=== PATIENT | female | born 1965 | race Caucasian/White ===

== ENCOUNTER → 2018-02-11 07:12 | Outpatient (CLI) | payer BC, SELFPAY | PROVIDERS: Family Provider Family Medicine; PCP Family Medicine; Visit Provider Obstetrics & Gynecology Gynecology | DX: Z12.31 Encounter for screening mammogram for malignant neoplasm of breast (principal) | CPT/HCPCS: 77063; 77067 ==

== ENCOUNTER → 2018-07-12 07:43 | Outpatient (CLI) | payer BC, SELFPAY ==
[2018-06-02 15:13] VITALS: BMI 35.5
[2018-07-12 10:28] LABS: Color, Urine Yellow (Yellow); Glucose, Dipstick Normal (Normal); Ketone-Dipstick Negative (Negative); Leukocyte Esterase-Dipstick 25 /ul (Negative); Nitrite-Dipstick Negative (Negative); Occult Blood-Urine 10 /ul (Negative); Protein-Dipstick Negative (Negative); Urine Bilirubin Dipstick Negative (Negative); Urine Clarity Clear (Clear); Urine Urobilinogen Normal (Normal)
[2018-07-12 10:31] LABS: Absolute Lymphocyte Count 1.97 X10^3/ul (0.83-4.51); Absolute Neutrophil Count 3.2 X10^3/uL (2.0-7.7); Basophil# 0.01 X10^3/uL; Basophil% 0.2 % (0-1); Eosinophil# 0.06 X10^3/uL; Eosinophils% 1.1 % (0-5); Hematocrit 40.9 % (37-47); Hemoglobin 12.8 g/dl (12.0-15.0); Lymphocyte # 1.97 X10^3/ul (4.0); Lymphocyte % 35.1 % (19-41); Mean Corp Hgb Conc 31.3 g/gl (32-36); Mean Corpuscular Hgb 29.2 pg (27.0-32.0); Mean Corpuscular Volume 93.4 fL (81-99); Mean Platelet Vol. 9.7 fl (6.2-12.0); Monocyte# 0.33 X10^3/uL; Monocyte% 5.9 % (0-10); Neutrophil # 3.24 X10^3/uL (2.7-7.7); Neutrophil % 57.5 % (47-70); Platelet Count 313 K/mm3 (150-450); RBC Distribution Width CV 13.4 % (11.6-14.6); RBC Distribution Width SD 45.5 fl (35.1-43.9); Red Blood Count 4.38 M/mm3 (4.2-5.4); White Blood Count 5.6 K/mm3 (4.4-11.0)
[2018-07-12 10:32] LABS: POSITIVE COUNT NO; POSITIVE DIFFERENTIAL NO; POSITIVE MORPHOLOGY NO
[2018-07-12 10:57] LABS: ALB/GLOB Ratio 0.8 RATIO (0.9-2.4); AST(SGOT) 21 U/L (15-37); Alanine Aminotransfer ALT/SGPT 33 U/L (13-56); Albumin, Serum 3.3 g/dL (3.2-5.0); Alkaline Phosphatase 88 U/L (45-117); Anion Gap 7 (5-15); BUN 11 mg/dL (7-18); BUN/Creat Ratio 13.6 RATIO (10-20); Calcium,Total 8.2 mg/dL (8.5-10.1); Chloride 103 mmol/L (98-107); Cholesterol 180 mg/dL (200); Creatinine, Serum 0.81 mg/dL (0.55-1.02); EST Glomerular Filtration Rate 79 mL/min (>60); Est Glom Filt Rate - Afr Amer 95 mL/min (>60); Globulin 4.3 g/dL (2.2-4.2); Glucose 78 mg/dL (74-106); High Density Lipoprotein 42 mg/dL; Potassium 3.7 mmol/L (3.5-5.1); Protein, Total 7.6 g/dL (6.4-8.2); Sodium Level 138 mmol/L (136-145); Thyroid Stim Hormone (TSH) 1.94 uIU/mL (0.358-3.74); Triglycerides 130 mg/dL; Very Low Density Lipoprotein 26 mg/dL (5-40)
--- OUTSIDE RECORDS SUMMARY | 2018-09-13 07:58 | XMS RPT_ITS ---
:1965 Author Organization OHIP Care Team Providers Name Role Phone Pacheoc Beckwith Attending Unavailable Lilliana Mullen Attending Unavailable Lilliana Mullen Referring Unavailable Pacheco Beckwith Primary Care Unavailable Chandrakant Murphy Attending Unavailable Pacheco Beckwith Referring Unavailable Pacheco Beckwith Attending Unavailable Pacheco Beckwith Referring Unavailable Pacheco Beckwith Primary Care Unavailable PROBLEMS PROBLEMS DATE TYPE CONDITION / CODE ATTENDING STATUS SOURCE 06/02/2018 Unknown J32.9 - Chronic Chandrakant Murphy Active [place] sinusitis, Community unspecified / Hospital J32.9(ICD-10) Repository 06/02/2018 Unknown J47.9 - Chandrakant Murphy Active [facility] Bronchiectasis, Community uncomplicated / Hospital J47.9(ICD-10) Repository 06/02/2018 Unknown J45.909 - Chandrakant Murphy Active [facility] Unspecified asthma, Community uncomplicated / Hospital J45.909(ICD-10) Repository 08/02/2017 Admitting Unknown / Pacheco Beckwith Active [facility] Medical diagnosis UNK(Unknown) G [facility] Repository PROCEDURES PROCEDURES No Procedure Records FoundRESULTS RESULTS URINALYSIS, ROUTINE Collected: 07/12/2018 Status: F Source: [place] (DIPSTICK) 7:46 AM [facility] REPOSITORY Order Comment: How was Urine Obtained? CLEAN CATCH TYPE CODE TESTS RESULT OUT OF RANGE REFERENCE UNITS LAB L400.3000 Yellow COLOR Normal Yellow LAB L400.3050 Clear Normal CLARITY Clear LAB L400.3200 Normal mg/dl Normal GLUCOSE, UR Normal LAB L400.3300 Negative mg/dL Normal BILIRUBIN URINE Negative LAB L400.3400 Negative mg/dl Normal KETONE UR Negative LAB L400.3465 1.002-1.030 Normal SP.GR. DIPSTX 1.010 LAB L400.3550 5.0 - 8.0 pH UR Normal 8.0 LAB L400.3600 Negative mg/dl PROT Normal DIPSTX Negative LAB L400.3700 Normal mg/dl Normal UROBILI Normal LAB L400.3750 Negative Normal NITRITE UR Negative LAB L400.3780 Negative /ul High 10 OCCULT BLOOD-UR LAB L400.3800 Negative /ul High LEUK 25 ESTERASE Performed By: #### L400.2010 #### [facility] [address] [place], [place], [id number] CBC W/DIFF, AUTOMATED Collected: 07/12/2018 Status: F Source: [place] 7:46 AM [facility] REPOSITORY TYPE CODE TESTS RESULT OUT OF RANGE REFERENCE UNITS LAB L100.1000 4.4-11.0 K/mm3 Normal WBC 5.6 LAB L100.1200 4.2-5.4 M/mm3 Normal RBC 4.38 LAB L100.1300 12.0-15.0 g/dl Normal HGB 12.8 LAB L100.1400 37-47 % Normal HCT 40.9 LAB L100.1500 81-99 fL Normal MCV 93.4 LAB L100.1600 27.0-32.0 pg Normal MCH 29.2 LAB L100.1700 32-36 g/gl Low MCHC 31.3 LAB L100.1810 11.6-14.6 % Normal RDW CV 13.4 LAB L100.1820 35.1-43.9 fl High RDW SD 45.5 LAB L100.1900 150-450 K/mm3 Normal PLT 313 LAB L100.2000 6.2-12.0 fl Normal MPV 9.7 LAB L100.2100 47-70 % Normal NEUT% 57.5 LAB L100.2200 19-41 % Normal LY% 35.1 LAB L100.2300 0-10 % Normal MONO% 5.9 LAB L100.2400 0-5 % Normal EO% 1.1 LAB L100.2500 0-1 % Normal BASO% 0.2 LAB L100.2550 0.0-0.9 % Normal IM GRAN % 0.200 Result Comment: IG% - Immature Granulocytes (promyelocytes, myelocytes and metamyelocytes) > 1% indicates that a LEFT SHIFT is Present. LAB L100.2620 2.0-7.7 X10 3/uL Normal Absolute Neut 3.2 LAB L100.2720 0.83-4.51 X10 3/ul Normal Absolute Lymph 1.97 Performed By: #### L100.0100 #### [facility] [address] [place], [place] [address]osman. [place], [place], [address] COMPREHENSIVE METABOLIC Collected: 07/12/2018 Status: F Source: [place] 7:46 AM [facility] REPOSITORY TYPE CODE TESTS RESULT OUT OF RANGE REFERENCE UNITS LAB L501.0100 74-106 mg/dL Normal GLU 78 Result Comment: Please note revised GLUCOSE reference range effective 2017. LAB L501.1000 7-18 mg/dL Normal BUN 11 LAB L501.1100 0.55-1.02 mg/dL Normal CREAT,SERUM 0.81 Result Comment: The validity of the calculated GFR AND GFRAA in patients over 70 years has not been determined. Clinical correlation is essential. LAB L501.1110 >60 mL/min Normal EST GFR 79 Result Comment: Non- GFR Calc LAB L501.1115 >60 mL/min Normal EST GFR - AA 95 Result Comment: GFR Calc LAB L501.1300 10-20 RATIO Normal BUN/CRE 13.6 LAB L501.1500 6.4-8.2 g/dL T Normal PROT 7.6 LAB L501.1800 3.2-5.0 g/dL Normal ALB 3.3 LAB L501.1950 2.2-4.2 g/dL High GLOB 4.3 LAB L501.2000 0.9-2.4 RATIO Low A/G 0.8 LAB L501.2200 8.5-10.1 mg/dL Low CA 8.2 LAB L501.4100 15-37 U/L Normal AST 21 LAB L501.4305 45-117 U/L Normal ALK P 88 LAB L501.4405 13-56 U/L Normal ALT 33 LAB L501.4600 0.20-1.00 mg/dL T Normal BILI 0.40 LAB L501.5300 136-145 mmol/L NA Normal 138 LAB L501.5600 3.5-5.1 mmol/L K Normal 3.7 LAB L501.5900 98-107 mmol/L CL Normal 103 LAB L501.6100 21.0-32.0 mmol/L Normal CO2 28.0 LAB L501.6200 5-15 Normal GAP 7 Performed By: #### L500.4050, L500.4100, L501.9520 #### [facility] [address] [facility] [place], [place], [address] LIPID PROFILE Collected: 07/12/2018 Status: F Source: [place] 7:46 AM [facility] REPOSITORY TYPE CODE TESTS RESULT OUT OF RANGE REFERENCE UNITS LAB L501.4900 200 mg/dL Normal CHOL 180 Result Comment: <200 mg/dL Desirable 200-240 mg/dL Borderline >240 mg/dL High Risk LAB L501.5000 mg/dL Normal TRIG 130 Result Comment: The drugs N-Acetylcysteine and Metamizole may falsely depress this assay. Serum Triglycerides Reference Interval Normal <150 mg/dL Borderline high 150 - 199 mg/dL High 200 - 499 mg/dL Very High > or = 500 mg/dL LAB L501.6400 mg/dL Normal HDL 42 Result Comment: The drugs N-Acetylcysteine and Metamizole may falsely depress this assay. Reference Range HDL <40 mg/dL Low HDL Cholesterol HDL >or= 60 mg/dL High HDL Cholesterol LAB L501.6500 0-130 mg/dL Normal LDL 112 LAB L501.6600 5-40 mg/dL Normal VLDL 26 Performed By: #### L500.4050, L500.4100, L501.9520 #### [facility] [address] [place], [address] THYROID STIM HORMONE Collected: 07/12/2018 Status: F Source: [place] (TSH) 7:46 AM [facility] REPOSITORY TYPE CODE TESTS RESULT OUT OF RANGE REFERENCE UNITS LAB L501.9520 0.358-3.74 uIU/mL Normal TSH 1.94 Performed By: #### L500.4050, L500.4100, L501.9520 #### [facility] [address] [place], [address] URGENT CARE VISIT Observed: 06/02/2018 Status: F Source: [place] REPORT 3:22 PM [facility] REPOSITORY [facility] [address] [place] [address] [address] [place] [address] OFFICE VISIT Date of Service: 06/02/18 MR#: [id number] Acct: [id number] Name: RENEE MICHELLE Rep #: [id number] : 1965 Provider: Chandrakant JARVIS Age/Sex: 53/F Location: [facility] Status: Signed Intake Vital Signs06/02/18 Height 5 ft 4 in 06/02/18 Weight: 207 lb 06/02/18 Body Mass Index (BMI) 35.5 06/02/18 Blood Pressure 124/80 H Intake Visit Reasons: CHEST CONGESTION AND COUGH Chief Complaint: Sinus pressure, postnasal drip, wheezing Pantograph Operator Required: No Allergies No Known Allergies Allergy (Unverified 06/02/18 15:18) Medications amoxicillin 500 mg capsule 1,000 mg PO BID 14 Days #56 cap 06/02/18 [Rx Confirmed 06/02/18] escitalopram 20 mg tablet 20 mg PO DAILY 06/02/18 [History Confirmed 06/02/18] levothyroxine 112 mcg capsule 112 mcg PO DAILY 06/02/18 [History Confirmed 06/02/18] methylprednisolone 4 mg tablets in a dose pack See Rx Instructions PO PER PKG DIR #21 tab 06/02/18 [Rx Confirmed 06/02/18] PFSH Medical History Asthma (Acute) Knee pain (Acute) Lung disease (Acute) Thyroid disease (Acute) diarrhea lasting more than one week (Acute) HPI HPI Chief Complaint: Sinus pressure, postnasal drip, wheezing Details: RENEE MICHELLE, is a 53 F who presents to the office today for initial evaluation approximately 3-4-week history of progressively worsening sinus pressure, purulent postnasal drip, chills. Patient decided to seek medical attention today as she has noticed over the last 24-48 hours developing a mild wheeze. She notes having a past medical history of bronchiectasis and asthma for which she uses albuterol nebulizers on an as-needed basis. She notes no complaints of chest pain/shortness of breath/fatigue, malaise scant nonproductive moist cough has recently developed over the last couple of days as well. She has taken no vcib-ztt-vmuqrpq products to assist with her symptoms. She notes no other associated symptoms and no other alleviating or aggravating factors. ROS Const Constitutional: No other (ROS negative x10 other than as noted above) Exam Const General: cooperative (Though warm to touch), healthy appearing, no acute distress, uncomfortable Nutritional Appearance: obese Orientation: alert, awake, oriented x3 HENMT Head: normal to inspection Ears: hearing grossly normal bilaterally, external ears normal, TM's normal bilaterally, EAC's normal Nose: external nose normal, nares normal, septum normal, no nasal discharge Face and sinus: normal facial exam, face symmetric, sinus tenderness ethmoid and frontal Mouth: oral mucosae normal, lip normal, tongue normal Teeth and gingiva: dentition normal, gingiva normal Throat: uvula midline, tonsils normal, posterior oropharynx normal, postnasal drainage (Moderate amount purulent visualized posterior pharynx) Eyes General: appearance normal, both eyes and all related structures Neck Neck: normal visual inspection, full ROM, no meningeal signs, supple, lymphadenopathy (Bilateral anterior cervical node swelling and tender to palpation) Neck mass: No Thyroid: thyroid normal Chest Chest palpation AND inspection: normal inspection of the chest Resp Effort AND Inspection: normal respiratory effort, able to speak in complete sentences, symmetric chest movement, cough Quality of cough: wet (Nonproductive) Auscultation: Bilateral: Clear to Auscultation (Except trace inspiratory/expiratory wheezes in bases partially clearing with cough) Cardio Palpation: normal PMI Rate: regular rate Rhythm: regular rhythm Heart Sounds: S1 normal, S2 normal, no gallops, no murmurs, no rubs Pulses: radial pulses present GI Inspection: normal to inspection Palpation: soft, no hepatosplenomegaly Skin General: no rashes or lesions noted Neuro General: alert, awake, oriented x3, gait normal Cognition: normal cognition Speech: speech normal Gait: normal gait Motor: muscle tone normal throughout Sensory Exam: no sensory deficits noted Psych Appearance: grossly normal Mental Status: mental status grossly normal Mood: congruent mood Affect: normal affect Speech and Movement: speech and movement normal Attitude: cooperative Thought Process: normal Thought Content: normal Judgment: judgment good Assessment AND Plan Problems 1. Sinusitis J32.9 2. Bronchiectasis J47.9 3. Asthma J45.909 Plan Amoxicillin and methylprednisolone as prescribed today. Continue albuterol as previous as needed. Avoid tobacco smoke exposure. Follow-up with PCP in 3-5 days should symptoms not improved, sooner should symptoms worsen or any other concerns develop. Patient states acknowledging understanding all the above. This note was generated with [employer] software. It may contain incorrect words, spelling, and punctuation that were not noted in checking the note before signing. Medications New: Coding Level of Care Code Off vis,new,level 3 Diagnoses Sinusitis J32.9 Bronchiectasis J47.9 Asthma J45.909 06/02/18 1522 <Electronically signed by Chandrakant JARVIS> Date Chandrakant JARVIS Cosigner Signature: Date (if applicable) CC: SCREENING MAMM (CAD), Observed: 02/11/2018 Status: F Source: [place] 7:16 AM [facility] REPOSITORY [facility] Imaging Services [address] [place], [place] [address] [address] SCREENING MAMM (CAD), BILAT MR#: [id number] Acct: [id number] Name: RENEE MICHELLE Rep #: [id number] : 1965 F 52 From: Golden Godfrey MD PCP: Pacheco Beckwith MD Status: REG CLI Study: SCREENING MAMM (CAD), BILAT Date of Exam: 02/11/18 Exam# [id number] Ordering Dr: Lilliana Mullen MD MAMMOGRAPHY - BILATERAL SCREENING REASON FOR EXAM: Female, 52 years old. Routine annual screening examination. PERTINENT HISTORY: Non-contributory. Left medial sebaceous cyst. TECHNIQUE: Digital bilateral breast diamante (3D mammographic acquisition) in the CC and MLO projections. 2-D mediolateral oblique (MLO) and craniocaudad (CC) views of both breasts were obtained. CAD: Full Field Digital Mammography with Computer Added Detection was performed. COMPARISON: Comparison is made with prior study dated May 20, 2010. FINDINGS: Breast Composition: There are scattered areas of fibroglandular density. There are no dominant masses or suspicious calcifications. There is a 1.2 cm x 1.4 cm well-defined superficial nodule in the deep inferior medial portion of the left breast incomplete with a history of sebaceous cyst. No other significant abnormalities are identified. There has been no significant change since the prior study. BI/SCREENING MAMM (CAD), BILAT IMPRESSION: Stable bilateral screening mammogram. Yearly follow-up mammogram recommended. (A) ASSESSMENT CATEGORY: BIRADS Category 2: Benign. A letter regarding these results will be sent to the patient by the facility within 30 days. Approximately 10% of breast cancers are not detected by mammography. A normal mammogram should not delay biopsy of a clinically suspicious abnormality. [id number] Electronically Signed: Golden Godfrey MD at 8:51 EDT Tel [phone], Service support , CC: Lilliana Mullen MD; Pacheco Beckwith MD Diesel Engine Fitter: Signed STL OCC BLD SCR Collected: 08/02/2017 Status: F Source: [facility] 12:25 PM [facility] REPOSITORY TYPE CODE TESTS RESULT OUT OF RANGE REFERENCE UNITS LAB L680.51040 NEGATIVE Normal STL POSITIVE OCC BLD SCR Performed By: #### L680.47264 #### [facility] [address] [place] [address] CDIF PCR Collected: 08/02/2017 Status: C Source: [facility] 12:25 PM [facility] REPOSITORY TYPE CODE TESTS RESULT OUT OF REFERENCE UNITS RANGE LAB L770.61977 NEGATIVE High CDIF PCR POSITIVE Result Comment: FURTHER TESTING FOR C.DIFFICILE IS NOT NECESSARY UNTIL THE COURSE OF TREATMENT HAS BEEN COMPLETED. PLEASE CANCEL ANY OTHER PENDING ORDERS FOR C.DIFFICILE TOXIN. RESULTS CALLED TO ALONDRA GALAVIZ AT 1203 08/03/17 BY DEION HASTINGS Performed By: #### L770.60639, L780.97947 #### [facility] [address] [place] [address] STOOL PANEL GI Collected: 08/02/2017 Status: F Source: [facility] 12:25 PM [facility] TYPE CODE TESTS RESULT OUT OF REFERENCE UNITS RANGE LAB L780.1000 NOTDETECTED 0 CAMPY Normal NOT DETECTED LAB L780.1100 NOTDETECTED 0 NOROVIRUS PCR Normal NOT DETECTED LAB L780.1200 NOTDETECTED 0 ROTAVIRUS A PCR Normal NOT DETECTED LAB L780.1300 NOTDETECTED 0 SAPOVIRUS PCR Normal NOT DETECTED LAB L780.3000 NOTDETECTED 0 PLESIOMONAS PCR Normal NOT DETECTED LAB L780.4000 NOTDETECTED 0 SALMONELLA PCR Normal NOT DETECTED LAB L780.5000 NOTDETECTED 0 VIBRIO PCR Normal NOT DETECTED LAB L780.6000 NOTDETECTED 0 V CHOLERAE PCR Normal NOT DETECTED LAB L780.7000 NOTDETECTED 0 YERSINIA PCR Normal NOT DETECTED LAB L780.8000 NOTDETECTED 0 EAEC E COLI PCR Normal NOT DETECTED LAB L780.9000 NOTDETECTED 0 EPEC E COLI PCR Normal NOT DETECTED LAB L780.9100 NOTDETECTED 0 ETEC E.COLI PCR Normal NOT DETECTED LAB L780.9200 NOTDETECTED 0 SHIGATOXIN ECOL Normal NOT DETECTED LAB L780.9230 NOTDETECTED 0 E.COLI O157 PCR Normal NOT DETECTED LAB L780.9300 NOTDETECTED 0 SHIGELLA/EIEC Normal NOT DETECTED LAB L780.9400 NOTDETECTED 0 CRYPTOSPORIDIUM Normal NOT DETECTED LAB L780.9500 NOTDETECTED 0 CYCLOSPORA PCR Normal NOT DETECTED LAB L780.9600 NOTDETECTED 0 E.HISTOLYTICA Normal NOT DETECTED LAB L780.9700 NOTDETECTED 0 GIARDIA KELLOGG PCR Normal NOT DETECTED LAB L780.9800 NOTDETECTED 0 ADENOVIRUS PCR Normal NOT DETECTED LAB L780.9900 NOTDETECTED 0 ASTROVIRUS PCR Normal NOT DETECTED Result Comment: Virus, bacteria, and parasite nucleic acid may persist in vivo independently of organism viability. Additionally, some organisms may be carried asymptomatically. Detection of organism targets does not imply that the corresponding organisms are infections or are the causative agents for clinical symptoms. Performed By: #### L770.99120, L780.15329 #### [facility] [address] [place] [address]# [phone] ALLERGIES ALLERGIES DATE TYPE / CODE NAME / CODE REACTION SEVERITY SOURCE 06/02/2018 Drug No Known Unknown [facility] Allergy/4160 Allergies/F00 [facility] [address](SNOMED [id number](RXNOR Repository CT) M) ENCOUNTERS ENCOUNTERS ADMIT/DISCHARGE ACCOUNT ADMITTING ENCOUNTER LOCATION SOURCE NUMBER CLASS 07/12/2018 [id number] Ambulatory [facility] ing:MTLAB Repository 06/02/2018/ [id number] Ambulatory BMSBuilding:B [place] 8 2 [facility] Repository 02/11/2018 [id number] Ambulatory [place] [facility] ing:OPBI Repository 08/02/2017 [id number] Ambulatory [address] g:KARINA Repository PAYERS PAYERS ENCOUNTER GUARANTOR PAYER SUBSCRIBER SOURCE 07/12/2018 [place] [id number] S Insurance:ANTHEMPolic MULLETDOB: [facility] SensorTran y Number: [id number], [id number] Repository [place] [address]Rsg: Date:0882-80-25MN [address]JPTLFHKALLY FORBES () [address]PR: 07/12/2018 Secondary NOT GIVENUNK [place] Insurance:SELF PAY [facility] Hospital Number: Effective Repository Date:2018-07-12 06/02/2018 [place] Primary [place] [facility] [id number] S Insurance:ANTHEMPolic MULLETDOB: Community [place] [place] y Number: [id number], [id number] Repository [place] [address]Qmi: Date:7263-12-25WG [address]TOAZPVTALLY FOR[address]ES () [address]CH: 06/02/2018 Secondary NOT GIVENUNK [place] Insurance:SELF PAY [facility] Hospital Number: Effective Repository Date:2018-06-02 02/11/2018 [place] Primary [place] [facility] [id number] S Insurance:ANTHEMPolic MulletDOB: Community [place] y Number: [id number] Hospital, [id number] Repository [place] [address]Kce: Date:4285-04-53YI [address]YVOZEFLALLY FOR[address] () [address]QL: 02/11/2018 Secondary NOT GIVENUNK [place] Insurance:SELF PAY [facility] Hospital Number: Effective Repository Date:2018-01-26 08/02/2017 RENEE Covarrubias Primary [place] [facility] [id number] S Insurance:ANTHEM MULLETUNK [facility] Number: Repository [facility], [id number] [place] [address]Ckn: Date:5338-90-23YB [address]QKBUCDOALLY FORBES () [address]YE:
== END ==
PROVIDERS: Family Provider Family Medicine; PCP Family Medicine; Referring Provider Family Medicine; Visit Provider Family Medicine
DX: Z00.00 Encounter for general adult medical examination without abnormal findings (principal); E03.9 Hypothyroidism, unspecified
CPT/HCPCS: 36415; 80053; 80061; 81002; 84443; 85025

== ENCOUNTER → 2018-11-05 09:27 | Outpatient (CLI) | payer BC, SELFPAY ==
[2018-11-04 17:18] VITALS: BMI 35.5
== END ==
PROVIDERS: Family Provider Family Medicine; PCP Family Medicine; Visit Provider Physician Assistant Surgical
DX: J02.9 Acute pharyngitis, unspecified (principal)
CPT/HCPCS: 87081

== ENCOUNTER 2018-12-09 16:42 | Emergency (ER) | payer BC, SELFPAY ==
[2018-11-04 17:18] VITALS: BMI 35.5
[2018-12-09 16:43] VITALS: BP 89/53; PULSE 80; RESP 18; TEMP 36.6; O2SAT 93; BMI 36.3
--- NOTE | 2018-12-09 17:49 | ED.DCSUM_ITS ---
- ER Visit Summary Date of Service: 12/09/18 Chief Complaint: Right arm injury History of Present Illness: The patient is a 53 F presents for injury to the right arm. Patient fell off the second step of a step stool while trying to paint the top of the door. She landed on her right elbow. She has had loss of function due to severe pain. She denies hitting her head or injuring her neck or back. Denies any other injuries. She has not taken anything for the pain. No blood thinners. History of hypothyroidism. Physical Examination: Vital signs: afebrile, hemodynamically stable, no hypoxia on room air General: well nourished, well developed, in no distress Skin: warm, dry, no rash, no pallor HEENT: normocephalic and atraumatic; PERRL, EOMI, moist mucous membranes Cardiovascular: regular rate and rhythm Respiratory: No increased work of breathing MSK: Patient holding the right upper extremity with shoulder adducted and elbow flexed against the torso. No deformity or tenderness at the shoulder joint. Swelling and pain along the humerus and into the elbow. No deformity noted to the elbow. No tenderness or deformities to the forearm. Patient has distal sensation and motor function intact. Radial pulse 2+. Neuro: Awake and alert, oriented ?4. No facial droop, sensation and motor function intact and symmetric Test Results: Medications Given Discontinued Medications Hydrocodone Bitart/Acetaminophen ([place] 5mg-325mg) 1 tablet PO X1 ONE Stop: 12/09/18 21:20 Last Admin: 12/09/18 22:29 Dose: 1 tablet Documented by: ROMY Morphine Sulfate () 10 mg SC X1 ONE Stop: 12/09/18 17:50 Last Admin: 12/09/18 18:15 Dose: 10 mg Documented by: MAURY Morphine Sulfate () 10 mg SC X1 ONE Stop: 12/09/18 19:44 Last Admin: 12/09/18 20:11 Dose: 10 mg Documented by: ROMY Clinical Impression(s) from Imaging Studies Elbow X-Ray 12/09/18 18:24 IMPRESSION: Acute displaced fracture of the distal third of the humeral shaft Electronically Signed: Oscar Lofton MD at 18:52 EDT , Service support , Humerus X-Ray 12/09/18 18:24 IMPRESSION: Acute displaced fracture of the distal third of the humeral shaft Electronically Signed: Oscar Lofton MD at 18:54 EDT , Service support , Humerus X-Ray 12/09/18 21:34 IMPRESSION: Comminuted fracture of the distal humeral shaft/metaphysis. There is mild medial angulation deformity at the fracture site, improved from the prereduction images. Electronically Signed: Lio Villagomez MD at 22:04 EDT , Service support , Emergency Department Course and Treatment: Patient presents with isolated trauma to the right upper extremity. She has no other injuries on evaluation. She was given subcutaneous morphine for her pain. X-ray showed a distal humerus shaft fracture that is spiral and angulated. Patient did have positive wrist extension, sensation intact to all distal dermatomes, and a 2+ radial pulse. She was discussed with Dr. Rodriguez, and was placed in a coaptation splint. Patient was then placed in a sling. After the splint placement, patient continued to have positive wrist extension, sensation intact and radial pulse 2+. A post reduction x-ray showed mild improvement in the alignment of the humerus. Patient was given prescription for pain medication and splint care instructions. She will follow-up with next week for reevaluation and further treatment. Treatment Plan: [] Disposition: [] Impression: Right distal humerus fracture status post splinting This note was generated with [employer] dictation software. It may contain incorrect words, spelling, and punctuation that were not noted in review of the chart prior to signing ED Disposition - Plan for ED Patient: Disposition: Home or Assisted Living Instructions: FRACTURE, Upper Extremity Prescriptions: Hydrocodone Bitart/Apap 5-325 [[place] 5MG-325MG] 1 tab PO Q6H PRN PRN 5 Days #20 tab PRN Reason: Pain Prescription Printed Ondansetron [Zofran Odt] 4 mg PO Q8H PRN PRN #10 tab PRN Reason: Nausea Prescription Printed Referrals: Pacheco Beckwith MD [Primary Care Provider] - Estela Rodriguez DO [STAFF PHYSICIAN] - 3-5 Days Additional Instructions: You may use lpfy-lwh-exqqmkd pain medication for mild to moderate pain. Use the [place] for moderate to severe pain. Apply ice to the arm 3-4 times a day for 15 to 20 minutes each time. Wear the sling for support of the arm. Do not get the splint wet. Follow-up with Dr. Rodriguez next week. Call her office first thing Wednesday to set up a follow-up appointment. If at any time you develop severe uncontrolled pain feel like there are any problems with the splint, develop numbness, color change or temperature change in the hand or have any concerns at all, return immediately to the emergency department for another evaluation.
[2018-12-09] MEDS: morphine 10 MG/ML Syringe SC ×2 (18:15→20:11)
--- NOTE | 2018-12-09 18:24 | RAD_ITS ---
STUDY: X-RAY - RIGHT ELBOW REASON FOR EXAM: Female, 53 years old. Trauma TECHNIQUE: 2 view(s) of the elbow. COMPARISON: None. FINDINGS: Normal visualized, radius and ulna. Normal radiocapitellar and ulnotrochlear articulations. Comminuted spiral fracture of the distal humeral shaft with separation and medial volar angulation of fracture fragments Diffuse soft tissue swelling noted RAD/Elbow 2 Views IMPRESSION: Acute displaced fracture of the distal third of the humeral shaft Electronically Signed: Oscar Lofton MD at 18:52 EDT , Service support ,
--- NOTE | 2018-12-09 18:24 | RAD_ITS ---
STUDY: X-RAY - RIGHT HUMERUS REASON FOR EXAM: Female, 53 years old. Trauma TECHNIQUE: 2 view(s) of the humerus. COMPARISON: None. FINDINGS: Acute comminuted spiral fracture of the distal third of the humeral shaft with overlapping and mild medial angulation of fracture fragments. Diffuse soft tissue swelling is noted RAD/Humerus min 2 Views IMPRESSION: Acute displaced fracture of the distal third of the humeral shaft Electronically Signed: Oscar Lofton MD at 18:54 EDT , Service support ,
--- NOTE | 2018-12-09 21:34 | RAD_ITS ---
STUDY: X-RAY - RIGHT HUMERUS REASON FOR EXAM: Female, 53 years old. Post reduction TECHNIQUE: 2 view(s) of the humerus. COMPARISON: Previous study of earlier this date 6:18 PM FINDINGS: There is a comminuted fracture of the distal humeral shaft/metaphysis. There is mild medial angulation deformity at the fracture site, improved slightly from the previous study. Soft tissue swelling is noted. RAD/Humerus min 2 Views IMPRESSION: Comminuted fracture of the distal humeral shaft/metaphysis. There is mild medial angulation deformity at the fracture site, improved from the prereduction images. Electronically Signed: Lio Villagomez MD at 22:04 EDT , Service support ,
[2018-12-09] MEDS: HYDROcodone Bitartrate/Apap 5/325 Tablet PO (22:29)
[2018-12-09 22:59] VITALS: BP 116/66; PULSE 89; RESP 16
== END 2018-12-09 23:14 | disposition home or self-care (01) ==
PROVIDERS: Emergency Provider Emergency Medicine; Family Provider Family Medicine; PCP Family Medicine
DX: S42.341A Displaced spiral fracture of shaft of humerus, right arm, initial encounter for closed fracture (principal); W10.9XXA Fall (on) (from) unspecified stairs and steps, initial encounter; Y93.89 Activity, other specified; Y92.9 Unspecified place or not applicable; Y99.9 Unspecified external cause status; E03.9 Hypothyroidism, unspecified; Z79.899 Other long term (current) drug therapy
CPT/HCPCS: 29105; 73060; 73070; 96372; 99282

== ENCOUNTER → 2019-01-09 09:07 | Outpatient (CLI) | payer BC, SELFPAY ==
[2019-01-09 09:45] LABS: Absolute Lymphocyte Count 2.75 X10^3/uL (0.83-4.51); Absolute Neutrophil Count 3.8 X10^3/uL (2.0-7.7); Basophil# 0.03 X10^3/uL; Basophil% 0.4 % (0-1); Color, Urine Yellow (Yellow); Eosinophil# 0.12 X10^3/uL; Eosinophils% 1.7 % (0-5); Glucose, Dipstick Normal (Normal); Hematocrit 40.2 % (37-47); Hemoglobin 13.2 g/dL (12.0-15.0); Ketone-Dipstick Negative (Negative); Leukocyte Esterase-Dipstick 25 /ul (Negative); Lymphocyte # 2.75 X10^3/ul (4.0); Lymphocyte % 38.3 % (19-41); Mean Corp Hgb Conc 32.8 g/dL (32-36); Mean Corpuscular Volume 91.4 fL (81-99); Mean Platelet Vol. 9.5 fl (6.2-12.0); Monocyte# 0.46 X10^3/uL; Monocyte% 6.4 % (0-10); NRBC Flagged by Analyzer 0 % (0-5); Neutrophil # 3.81 X10^3/uL (2.7-7.7); Neutrophil % 53.1 % (47-70); Nitrite-Dipstick Negative (Negative); Occult Blood-Urine 10 /ul (Negative); Platelet Count 312 K/mm3 (150-450); Protein-Dipstick Negative (Negative); RBC Distribution Width CV 12.6 % (11.6-14.6); RBC Distribution Width SD 41.4 fl (35.1-43.9); Specific Gravity, Urine 1.005 (1.002-1.030); Urine Bilirubin Dipstick Negative (Negative); Urine Clarity Sl. Cloudy (Clear); Urine Urobilinogen Normal (Normal); White Blood Count 7.2 K/mm3 (4.4-11.0)
[2019-01-09 10:19] LABS: ALB/GLOB Ratio 0.8 RATIO (0.9-2.4); AST(SGOT) 20 U/L (15-37); Alanine Aminotransfer ALT/SGPT 27 U/L (13-56); Albumin, Serum 3.5 g/dL (3.2-5.0); Alkaline Phosphatase 97 U/L (45-117); Anion Gap 8 (5-15); BUN 14 mg/dL (7-18); BUN/Creat Ratio 15.5 RATIO (10-20); Calcium,Total 9.1 mg/dL (8.5-10.1); Chloride 103 mmol/L (98-107); Cholesterol 200 mg/dL (200); EST Glomerular Filtration Rate 70 mL/min (>60); Est Glom Filt Rate - Afr Amer 84 mL/min (>60); Globulin 4.6 g/dL (2.2-4.2); Glucose 87 mg/dL (74-106); High Density Lipoprotein 50 mg/dL; Protein, Total 8.1 g/dL (6.4-8.2); Sodium Level 141 mmol/L (136-145); Thyroid Stim Hormone (TSH) 2.36 uIU/mL (0.358-3.74); Triglycerides 113 mg/dL; Very Low Density Lipoprotein 23 mg/dL (5-40)
== END ==
PROVIDERS: Family Provider Family Medicine; PCP Family Medicine; Referring Provider Family Medicine; Visit Provider Family Medicine
DX: Z00.00 Encounter for general adult medical examination without abnormal findings (principal); E03.9 Hypothyroidism, unspecified; J47.9 Bronchiectasis, uncomplicated
CPT/HCPCS: 36415; 80053; 80061; 81002; 84443; 85025

== ENCOUNTER → 2019-03-23 14:11 | Outpatient (CLI) | payer BC, SELFPAY | PROVIDERS: Family Provider Family Medicine; PCP Family Medicine; Referring Provider Orthopaedic Surgery; Visit Provider Orthopaedic Surgery | DX: S42.391D Other fracture of shaft of right humerus, subsequent encounter for fracture with routine healing (principal); X58.XXXA Exposure to other specified factors, initial encounter; Y93.9 Activity, unspecified; Y92.9 Unspecified place or not applicable; Y99.9 Unspecified external cause status | CPT/HCPCS: 36415; 82306 ==

== ENCOUNTER → 2019-08-29 13:41 | Outpatient (CLI) | payer BC, SELFPAY ==
[2019-08-29 13:26] VITALS: BMI 36.3
--- NOTE | 2019-08-29 13:41 | RAD_ITS ---
STUDY: X-RAY CHEST REASON FOR EXAM: Female, 54 years old. COUGH TECHNIQUE: PA and lateral views of the chest. COMPARISON: Comparison is made with prior study dated August 14, 2016. FINDINGS: Persistent infiltrate in the lingular segment of the left upper lobe and left lower lobe. Follow-up is recommended. There is no demonstrated pleural abnormality. Normal size heart. Normal mediastinum and nina. Normal visualized pulmonary arteries. Normal visualized aortic arch and descending thoracic aorta. There are diffuse degenerative changes of the visualized thoracic spine. Normal visualized ribs, clavicles, and shoulders. Small hiatal hernia. RAD/Chest PA and Lateral IMPRESSION: Persistent left lower lobe infiltrate. Electronically Signed: Golden Godfrey, at 14:03 EDT , Service support ,
== END ==
PROVIDERS: PCP Family Medicine; Referring Provider Physician Assistant Surgical; Visit Provider Physician Assistant Surgical
DX: J47.9 Bronchiectasis, uncomplicated (principal)
CPT/HCPCS: 71046

== ENCOUNTER → 2020-01-10 15:45 | Outpatient (CLI) | payer BC, SELFPAY ==
[2019-08-29 13:26] VITALS: BMI 36.3
--- NOTE | 2020-01-10 16:04 | RAD_ITS ---
STUDY: X-RAY CHEST REASON FOR EXAM: Female, 54 years old. Pre-op TECHNIQUE: Frontal and lateral views of the chest. COMPARISON: 08/29/2019. FINDINGS: Normal lung volumes. Stable mild streaky density in both lung bases most consistent with scarring worse on the left. No definite acute infiltrates. No effusions. Normal size heart. Normal mediastinum and nina. Normal visualized pulmonary arteries. Normal visualized aortic arch and descending thoracic aorta. Normal visualized thoracic spine. Normal visualized ribs, clavicles, and shoulders. There is no demonstrated abnormality of the visualized soft tissue structures of the upper abdomen. RAD/Chest PA and Lateral IMPRESSION: Stable mild streaky density in both lung bases most consistent with scarring worse on the left. No definite acute infiltrates. Electronically Signed: Daniel Pleitez MD at 20:35 EDT , Service support ,
--- NOTE | 2020-01-10 16:05 | EKG12_ITS ---
Test Reason : PREOP Blood Pressure : / mmHG Vent. Rate : 054 BPM Atrial Rate : 054 BPM P-R Int : 140 ms QRS Dur : 084 ms QT Int : 392 ms P-R-T Axes : 027 018 014 degrees QTc Int : 371 ms Sinus bradycardia Nonspecific T wave abnormality Abnormal ECG Confirmed by TEJAL EVERETT ([id number]), editor news KAYE RAMOS ([id number]) on 01/15/2020 12:01:39 PM Referred By: Chandrakant Washburn Confirmed By:TEJAL EVERETT
[2020-01-10 16:55] LABS: Absolute Lymphocyte Count 2.72 X10^3/uL (0.83-4.51); Absolute Neutrophil Count 4.6 X10^3/uL (2.0-7.7); Basophil# 0.05 X10^3/uL; Basophil% 0.6 % (0-1); Eosinophil# 0.16 X10^3/uL; Hematocrit 38.7 % (37-47); Hemoglobin 12.5 g/dL (12.0-15.0); Lymphocyte # 2.72 X10^3/ul (4.0); Lymphocyte % 34.1 % (19-41); Mean Corp Hgb Conc 32.3 g/dL (32-36); Mean Corpuscular Hgb 29.8 pg (27.0-32.0); Mean Corpuscular Volume 92.4 fL (81-99); Mean Platelet Vol. 9.5 fl (6.2-12.0); Monocyte# 0.45 X10^3/uL; Monocyte% 5.6 % (0-10); NRBC Flagged by Analyzer 0 % (0-5); Neutrophil # 4.57 X10^3/uL (2.7-7.7); Neutrophil % 57.4 % (47-70); Platelet Count 314 K/mm3 (150-450); RBC Distribution Width CV 12.9 % (11.6-14.6); Red Blood Count 4.19 M/mm3 (4.2-5.4)
[2020-01-10 17:16] LABS: Anion Gap 2 (5-15); BUN 15 mg/dL (7-18); Calcium,Total 9.2 mg/dL (8.5-10.1); Chloride 106 mmol/L (98-107); Creatinine, Serum 0.79 mg/dL (0.55-1.02); EST Glomerular Filtration Rate 81 mL/min (>60); Est Glom Filt Rate - Afr Amer 98 mL/min (>60); Glucose 103 mg/dL (74-106); Potassium 4.6 mmol/L (3.5-5.1); Sodium Level 139 mmol/L (136-145)
== END ==
PROVIDERS: PCP Family Medicine; Referring Provider Specialist; Visit Provider Specialist
DX: Z01.818 Encounter for other preprocedural examination (principal); Z01.810 Encounter for preprocedural cardiovascular examination; Z01.811 Encounter for preprocedural respiratory examination
CPT/HCPCS: 36415; 71046; 80048; 85025; 93005

== ENCOUNTER → 2020-01-18 07:32 | Outpatient (CLI) | payer BC, SELFPAY ==
[2019-08-29 13:26] VITALS: BMI 36.3
[2020-01-18 07:43] LABS: Mucous, Urine 0 SEEN /hpf (<or=2+)
[2020-01-18 10:19] LABS: Absolute Lymphocyte Count 1.99 X10^3/uL (0.83-4.51); Absolute Neutrophil Count 2.8 X10^3/uL (2.0-7.7); Basophil# 0.04 X10^3/uL; Basophil% 0.8 % (0-1); Eosinophil# 0.12 X10^3/uL; Eosinophils% 2.3 % (0-5); Glucose, Dipstick Normal (Normal); Hematocrit 39.2 % (37-47); Hemoglobin 12.8 g/dL (12.0-15.0); Ketone-Dipstick Negative (Negative); Leukocyte Esterase-Dipstick 500 /ul (Negative); Lymphocyte # 1.99 X10^3/ul (4.0); Lymphocyte % 37.3 % (19-41); Mean Corp Hgb Conc 32.7 g/dL (32-36); Mean Corpuscular Hgb 29.6 pg (27.0-32.0); Mean Corpuscular Volume 90.5 fL (81-99); Mean Platelet Vol. 9.5 fl (6.2-12.0); Monocyte# 0.35 X10^3/uL; Monocyte% 6.6 % (0-10); NRBC Flagged by Analyzer 0 % (0-5); Neutrophil # 2.82 X10^3/uL (2.7-7.7); Neutrophil % 52.8 % (47-70); Nitrite-Dipstick Negative (Negative); Occult Blood-Urine 50 /ul (Negative); Platelet Count 341 K/mm3 (150-450); Protein-Dipstick Negative (Negative); RBC Distribution Width CV 12.7 % (11.6-14.6); RBC Distribution Width SD 41.8 fl (35.1-43.9); Red Blood Count 4.33 M/mm3 (4.2-5.4); Urine Bilirubin Dipstick Negative (Negative); Urine Urobilinogen Normal (Normal); Urine pH 6.5 (5.0 - 8.0); White Blood Count 5.3 K/mm3 (4.4-11.0)
[2020-01-18 10:28] LABS: Color, Urine Yellow (Yellow); Urine Clarity Clear (Clear)
[2020-01-18 10:29] LABS: Squamous Epithelial Cells - UA 25-50 SEEN /hpf (5-10)
[2020-01-18 10:30] LABS: Renal Epithelial Cells 0-5 SEEN /hpf (0-5)
[2020-01-18 10:32] LABS: Red Blood Cells-Urine 0-5 SEEN /hpf (0-5); White Blood Cells 10-25 SEEN /hpf (0-5)
[2020-01-18 10:33] LABS: Bacteria RARE /hpf (None Seen); Vitamin D,25 Hydroxy 51.2 ng/mL
[2020-01-18 10:55] LABS: ALB/GLOB Ratio 0.8 RATIO (0.9-2.4); AST(SGOT) 25 U/L (15-37); Alanine Aminotransfer ALT/SGPT 43 U/L (13-56); Albumin, Serum 3.4 g/dL (3.2-5.0); Alkaline Phosphatase 89 U/L (45-117); Anion Gap 4 (5-15); BUN 14 mg/dL (7-18); BUN/Creat Ratio 16.1 RATIO (10-20); Calcium,Total 8.8 mg/dL (8.5-10.1); Chloride 106 mmol/L (98-107); Cholesterol 195 mg/dL (200); Creatinine, Serum 0.87 mg/dL (0.55-1.02); EST Glomerular Filtration Rate 72 mL/min (>60); Est Glom Filt Rate - Afr Amer 87 mL/min (>60); Globulin 4.3 g/dL (2.2-4.2); Glucose 100 mg/dL (74-106); High Density Lipoprotein 47 mg/dL; Potassium 3.8 mmol/L (3.5-5.1); Protein, Total 7.7 g/dL (6.4-8.2); Sodium Level 138 mmol/L (136-145); Thyroid Stim Hormone (TSH) 3.69 uIU/mL (0.358-3.74); Triglycerides 105 mg/dL; Very Low Density Lipoprotein 21 mg/dL (5-40)
== END ==
PROVIDERS: PCP Family Medicine; Referring Provider Family Medicine; Visit Provider Family Medicine
DX: Z00.00 Encounter for general adult medical examination without abnormal findings (principal); E55.9 Vitamin D deficiency, unspecified; E03.9 Hypothyroidism, unspecified; J45.909 Unspecified asthma, uncomplicated
CPT/HCPCS: 36415; 80053; 80061; 81001; 82306; 84443; 85025

== ENCOUNTER → 2020-02-27 11:13 | Outpatient (CLI) | payer BC, SELFPAY ==
[2019-08-29 13:26] VITALS: BMI 36.3
--- NOTE | 2020-02-27 11:15 | VDLE_ITS ---
Reason For Study: LLE pain Procedure LEFT Exam performed in department. GSV is normal. The exam was abbreviated due to the COVID 19 CFV is compressible, spontaneous, phasic, protocol. competent, and demonstrates normal The exam was diagnostic. augmentation. A preliminary report was called and/or faxed FV is compressible, spontaneous, phasic, to Dr. Washburn. competent and demonstrates normal augmentation. POP V is compressible, spontaneous, phasic, competent and demonstrates normal augmentation. T/P Trunk is compressible. PTV is compressible. LT PerV is compressible. Hypoechoic area behind the knee measuring .66 x 3.4 cm in short. Area is nonvascular. Interpretation Summary Deep veins of the left lower extremity are patent and compressible segmentally. There is no evidence of left lower extremity deep vein thrombosis. Valvular competence appears intact within the proximal deep venous system on the left . The left great saphenous vein appears patent and compressible segmentally. A non-vascular, hypoechoic structure is noted in the left popliteal space, measuring 0.66 cm x 3.4 cm. This probably represents a popliteal cyst. Clinical correlation is advised. Ordering Physician: Chandrakant Washburn Performed By: Ajay Nix RVT
== END ==
PROVIDERS: PCP Family Medicine; Referring Provider Specialist; Visit Provider Specialist
DX: M79.662 Pain in left lower leg (principal)
CPT/HCPCS: 87635; 93971; C9803; U0003

== ENCOUNTER 2020-05-20 12:23 | Emergency (ER) | payer BC, SELFPAY ==
[2019-08-29 13:26] VITALS: BMI 36.3
[2020-05-20 12:24] VITALS: BP 140/72; PULSE 66; RESP 14; TEMP 36.1; O2SAT 96; BMI 37.2
[2020-05-20 12:26] VITALS: BP 140/72; PULSE 69; RESP 14; TEMP 36.1; O2SAT 96
--- NOTE | 2020-05-20 13:00 | RAD_ITS ---
STUDY: X-RAY CHEST REASON FOR EXAM: Female, 55 years old. SOB, COUGH AND SORE THROAT TECHNIQUE: Single AP portable view of the chest. COMPARISON: Comparison is made with prior study dated 01/10/2020. FINDINGS: Mild residual increased density at the left lung base although this has improved as compared to prior study. There is no demonstrated pleural abnormality. Normal size heart. Normal mediastinum and nina. Normal visualized pulmonary arteries. Normal visualized aortic arch and descending thoracic aorta. There are degenerative changes of the visualized thoracic spine. Normal visualized ribs, clavicles, and shoulders. There is no demonstrated abnormality of the visualized soft tissue structures of the upper abdomen. RAD/Chest 1 View (Portable) IMPRESSION: Milder degenerative changes at the left lung base although there has been improvement as compared to prior study. This may represent scarring. Electronically Signed: Golden Godfrey, at 13:36 EST , Service support ,
--- NOTE | 2020-05-20 13:00 | ED.VIS.GEN ---
History of Present Illness Chief Complaint: Sore Throat Informant: Patient Narrative: 55-year-old female with a previous medical history of bronchiectasis states that on she began to have chills sinus drainage sore throat cough myalgias. She notes chronic diarrhea. Her son tested positive for Covid prior to her feeling ill. She states that she was feeling a little bit better yesterday and today just felt more tightness in the upper lungs. She is worried she may have pneumonia. She currently does not take anything for her bronchiectasis. She sees Dr. Yu. - Past Medical History (1) Bronchiectasis Status: Acute Past Medical History - Allergies and Home Meds Allergies/Adverse Reactions: Allergies No Known Allergies Allergy (Verified 05/20/20 12:27) Primary Care Physician: Pacheco Beckwith MD [Primary Care Provider] - Prior records reviewed: Yes Surgical History: noncontributory Smoking Status: Never smoker Drugs: None Review of Systems General: Reports: Chills, Fever, Malaise. Denies: Sweats Eyes: Denies: Visual changes - bilaterally, Diplopia ENT: Reports: Rhinorrhea, Sore throat Cardiovascular: Denies: Chest pain, Palpitations Respiratory: Reports: Dyspnea, Cough. Denies: Dyspnea on exertion Gastrointestinal: Reports: Diarrhea. Denies: Abdominal pain, Nausea, Vomiting, Melena, Hematochezia Genitourinary: Denies: Dysuria, Hematuria, Frequency Musculoskeletal: Reports: Myalgias. Denies: Back pain, Extremity Pain Skin: Denies: Rash, Wounds Neurological: Denies: Headache, Weakness, Numbness Physical Exam Vital Signs/Narrative: Vital Signs Temp Pulse Resp BP Pulse Ox 05/20/20 12:26 97 F L 69 14 140/72 H 96 05/20/20 12:24 97 F L 66 14 140/72 H 96 Inital Vital Signs reviewed: Yes General: Well nourished, Well developed, No Acute Distress Head: Normocephalic, Atraumatic Eyes: Perrl, EOMI ENT: Moist mucous membranes, No rhinorrhea Neck: Supple, Nontender Cardiovascular: Regular rate, Regular rhythm, No murmurs Respiratory: No distress, Chest nontender, Wheezing - There is a light expiratory wheeze Abdomen: Soft, Nontender, Nondistended, Normal bowel sounds Back: Nontender, Normal Inspection Extremities: Nontender, No edema Skin: Normal color, No rash Neurological: Alert, Oriented x3, Cranial nerves II-XII grossly intact, Normal Strength, Normal Sensation Psychological: Normal affect, Normal Mood Diagnostic/Tx/Re-eval - Medical Decision Making My interpretation of the plain film of the chest is negative for acute process. Patient is Covid positive. Clinically though she appears well. I gave her albuterol MDI with spacer because of the wheeze. Also can place her on prednisone. She is to self isolate return if worsening or concerns. ED Disposition - Plan for ED Patient: Disposition: Home or Assisted Living Diagnosis: COVID-19, Bronchiectasis Instructions: Coronavirus Disease 2019 (COVID-19): Overview Prescriptions: Prednisone [Deltasone] 60 mg PO DAILY #15 tab Prescription Printed Referrals: Pacheco Beckwith MD [Primary Care Provider] - As Needed Additional Instructions: Use the albuterol inhaler 2 puffs every 2-4 hours as needed.
[2020-05-20 14:44] VITALS: BP 141/64; PULSE 75; RESP 22; O2SAT 97
--- NOTE | 2020-05-20 14:45 | ED.RN ---
THIS NURSE REVIEWED D/C INSTRUCTIONS WITH PT. PT VERBALIZED UNDERSTANDING OF INSTRUCTIONS. PT DENIES FURTHER NEEDS OR QUESTIONS AT THIS TIME. PT AMBULATES FROM ROOM ON OWN WITHOUT ASSISTANCE FROM STAFF
== END 2020-05-20 14:46 | disposition home or self-care (01) ==
PROVIDERS: Emergency Provider Emergency Medicine; PCP Family Medicine
DX: U07.1 COVID-19 (principal); J47.9 Bronchiectasis, uncomplicated
CPT/HCPCS: 71045; 87426; 99282

== ENCOUNTER → 2020-07-15 15:33 | Outpatient (CLI) | payer BC, SELFPAY ==
[2020-07-15 18:13] LABS: Vitamin D,25 Hydroxy 26.3 ng/mL
[2020-07-15 18:15] LABS: Thyroid Stim Hormone (TSH) 3.56 uIU/mL (0.358-3.74)
== END ==
PROVIDERS: PCP Family Medicine; Referring Provider Family Medicine; Visit Provider Family Medicine
DX: E55.9 Vitamin D deficiency, unspecified (principal); E03.9 Hypothyroidism, unspecified
CPT/HCPCS: 36415; 82306; 84443

== ENCOUNTER → 2020-11-27 15:47 | Outpatient (CLI) | payer BC, SELFPAY | PROVIDERS: PCP Family Medicine; Visit Provider Internal Medicine Pulmonary Disease | DX: J45.909 Unspecified asthma, uncomplicated (principal); J47.9 Bronchiectasis, uncomplicated; R05 Cough | CPT/HCPCS: 87070; 87077; 87186; 87205 ==

== ENCOUNTER → 2021-01-15 08:55 | Outpatient (CLI) | payer BC, SELFPAY ==
[2021-01-15 10:09] LABS: Absolute Lymphocyte Count 2.09 X10^3/uL (0.83-4.51); Absolute Neutrophil Count 2.8 X10^3/uL (2.0-7.7); Basophil# 0.04 X10^3/uL; Basophil% 0.7 % (0-1); Eosinophil# 0.15 X10^3/uL; Eosinophils% 2.8 % (0-5); Hematocrit 40.2 % (37-47); Hemoglobin 13.1 g/dL (12.0-15.0); Lymphocyte # 2.09 X10^3/ul (0.83-4.51); Lymphocyte % 38.7 % (19-41); Mean Corp Hgb Conc 32.6 g/dL (32-36); Mean Corpuscular Hgb 29.7 pg (27.0-32.0); Mean Corpuscular Volume 91.2 fL (81-99); Mean Platelet Vol. 9.5 fl (6.2-12.0); Monocyte# 0.32 X10^3/uL; Monocyte% 5.9 % (0-10); NRBC Flagged by Analyzer 0 % (0-5); Neutrophil # 2.78 X10^3/uL (2.7-7.7); Neutrophil % 51.5 % (47-70); Platelet Count 338 K/mm3 (150-450); RBC Distribution Width CV 12.7 % (11.6-14.6); RBC Distribution Width SD 42.4 fl (35.1-43.9); Red Blood Count 4.41 M/mm3 (4.2-5.4); White Blood Count 5.4 K/mm3 (4.4-11.0)
[2021-01-15 10:49] LABS: ALB/GLOB Ratio 0.8 RATIO (0.9-2.4); AST(SGOT) 27 U/L (15-37); Alanine Aminotransfer ALT/SGPT 45 U/L (13-56); Albumin, Serum 3.5 g/dL (3.2-5.0); Alkaline Phosphatase 90 U/L (45-117); Anion Gap 6 (5-15); BUN 15 mg/dL (7-18); BUN/Creat Ratio 20.2 RATIO (10-20); Chloride 104 mmol/L (98-107); Cholesterol 206 mg/dL (200); Creatinine, Serum 0.74 mg/dL (0.55-1.02); EST Glomerular Filtration Rate 87 mL/min (>60); Est Glom Filt Rate - Afr Amer 105 mL/min (>60); Globulin 4.5 g/dL (2.2-4.2); Glucose 88 mg/dL (74-106); High Density Lipoprotein 51 mg/dL; Potassium 3.8 mmol/L (3.5-5.1); Sodium Level 139 mmol/L (136-145); Thyroid Stim Hormone (TSH) 8.78 uIU/mL (0.358-3.74); Triglycerides 126 mg/dL; Very Low Density Lipoprotein 25 mg/dL (5-40)
== END ==
PROVIDERS: PCP Family Medicine; Referring Provider Family Medicine; Visit Provider Family Medicine
DX: Z00.00 Encounter for general adult medical examination without abnormal findings (principal); Z13.6 Encounter for screening for cardiovascular disorders; E03.9 Hypothyroidism, unspecified; E55.9 Vitamin D deficiency, unspecified
CPT/HCPCS: 36415; 80053; 80061; 82306; 84443; 85025

== ENCOUNTER → 2021-01-30 08:23 | Outpatient (CLI) | payer BC, SELFPAY ==
--- NOTE | 2021-01-30 08:44 | BI_ITS ---
MAMMOGRAPHY - BILATERAL SCREENING REASON FOR EXAM: Female, 55 years old. Routine annual screening examination. PERTINENT HISTORY: Non-contributory. TECHNIQUE: Digital bilateral breast cathie (3D mammographic acquisition) in the CC and MLO projections. 2-D mediolateral oblique (MLO) and craniocaudad (CC) views of both breasts were obtained. CAD: Full Field Digital Mammography with Computer Added Detection was performed. COMPARISON: Comparison is made with prior study 02/11/2018 and 05/20/2010. FINDINGS: Breast Composition: The breasts are almost entirely fatty. There are no dominant masses or suspicious calcifications. Stable small benign-appearing bilateral axillary lymph nodes. Interval decrease in size of the previously seen sebaceous cyst in the deep inferior medial aspect of the left breast. No other significant abnormalities are identified. There has been no significant change since the prior study. BI/SCRN MAMM (CAD)W/CATHIE BILAT IMPRESSION: Stable bilateral screening mammogram. Yearly follow-up mammogram recommended. (A) ASSESSMENT CATEGORY: BIRADS Category 2: Benign. A letter regarding these results will be sent to the patient by the facility within 30 days. Approximately 10% of breast cancers are not detected by mammography. A normal mammogram should not delay biopsy of a clinically suspicious abnormality. [id number] Electronically Signed: Golden Godfrey MD at 10:16 EDT , Service support ,
== END ==
PROVIDERS: PCP Family Medicine; Referring Provider Family Medicine; Visit Provider Family Medicine
DX: Z12.31 Encounter for screening mammogram for malignant neoplasm of breast (principal)
CPT/HCPCS: 77063; 77067

== ENCOUNTER 2022-11-26 07:25 | Emergency (ER) | payer BC, SELFPAY ==
[2022-11-26 07:25] VITALS: BP 153/56; PULSE 86; RESP 15; TEMP 36; O2SAT 97; BMI 38.9
--- NOTE | 2022-11-26 07:37 | EKG12_ITS ---
Test Reason : CP Blood Pressure : / mmHG Vent. Rate : 067 BPM Atrial Rate : 067 BPM P-R Int : 178 ms QRS Dur : 086 ms QT Int : 406 ms P-R-T Axes : 053 013 022 degrees QTc Int : 429 ms Normal sinus rhythm Nonspecific T wave abnormality Abnormal ECG Confirmed by DAXA HENDRICKS, BELTRAN ([id number]), clinical editor CATHERINE POLLOCK ([id number]) on 11/27/2022 8:10:25 AM Referred By: CHERRY Confirmed By:BELTRAN MITTAL MD
--- NOTE | 2022-11-26 07:38 | ED.VIS.CHEST ---
HPI History of Present Illness Chief Complaint: Chest Pain Informant: patient Onset/Context/Timing Onset: Hours (1-2) Activity at onset: activity on onset (Awoke with discomfort) Timing: Continuous Quality: Positive for - (Like a pushing discomfort) Location: Left Chest (Initially left parascapular area and now the left chest) Current Severity: Moderate Maximum Severity: Moderate Worsened By: Nothing Relieved By: NSAIDS (Took 2 Aleve prior to coming which seemed to help) Associated Symptoms: Positive for Dyspnea (Maybe a little); Negative for Nausea, Vomiting, Diaphoresis, Cough, Fever, Lightheadedness, Acid Reflux or Palpitations Narrative Narrative: Patient states that she woke up this morning around 1 hour prior to getting here, about 1 hour and 15 minutes prior to my evaluation saying that initially she noticed discomfort in her left upper back around her shoulder blade, and then soon after that she was also having it in her left chest diffusely as well as some discomfort down her left arm. She has never had this before. No history of any heart problems she has bronchiectasis, she is on maintenance inhalers for that and states it has been stable lately. No recent illness. 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 She denies any leg pain or swelling or history of DVT/PE. She denies any abdominal symptoms. Denies any diaphoresis, palpitations, syncope. [facility] Medical History Asthma Bronchiectasis diarrhea lasting more than one week Knee pain Lung disease Thyroid disease Home Medications escitalopram oxalate 20 mg tablet 20 mg PO DAILY 06/02/18 [History Last Taken Unknown] levothyroxine 112 mcg capsule 112 mcg PO DAILY 06/02/18 [History Last Taken Unknown] cetirizine 10 mg tablet (Zyrtec) 10 mg PO DAILY 11/04/18 [History Last Taken Unknown] Allergy/AdvReac Type Severity Reaction Status Date / Time Penicillins Allergy Other Verified 08/04/22 09:57 Social History Smoking Status: Never smoker alcohol intake: never ROS ROS ED Constitutional Constitutional ED: Denies chills or fever(s) Eyes Eyes: Denies change in vision or diplopia ENT ENT ED: Denies rhinorrhea or sore throat Cardiovascular Cardiovascular: Reports as per HPI, chest pain and radiating jaw, neck or arm pain; Denies orthopnea, palpitations or paroxysmal nocturnal dyspnea Respiratory/Chest Respiratory/Chest: Reports dyspnea; Denies cough, dyspnea on exertion, orthopnea or paroxysmal nocturnal dyspnea Gastrointestinal Gastrointestinal: Denies abdominal pain, diarrhea, nausea or vomiting Genitourinary Genitourinary ED: Denies dysuria or hematuria Musculoskeletal Musculoskeletal: Denies back pain or neck pain Integumentary Denies abscess or rash Neurologic Neurologic: Denies headache(s), paresthesias or weakness Psychiatric Psychiatric: Denies anxiety or suicidal thoughts EXAM Physical Exam Const Vital Signs: 11/26/22 07:25 11/26/22 08:41 11/26/22 08:44 Temperature 96.8 F L Temperature Source Temporal Pulse Rate 86 66 70 Respiratory Rate 15 18 Blood Pressure 153/56 H 165/96 H 107/70 Blood Pressure Mean 88 82 Pulse Ox 97 97 Oxygen Delivery Method Room Air Room Air 11/26/22 10:33 Temperature Temperature Source Pulse Rate 70 Respiratory Rate 18 Blood Pressure 135/75 H Blood Pressure Mean 95 Pulse Ox 97 Oxygen Delivery Method Room Air Positive well nourished and well developed General Appearance ED: well developed and NAD HEENT Reports moist mucous membranes normocephalic and atraumatic Eyes PERRL and EOMs intact bilaterally Neck full ROM and supple Chest Wall inspection of chest normal and palpation of chest normal Resp normal respiratory effort and clear to auscultation bilaterally Cardio regular rate, regular rhythm and no murmurs Rate: Negative for tachycardic Peripheral Pulses: radial pulses present bilateral 2+ GI non-tender and non-distended Auscultation: normoactive bowel sounds Palpation: soft Back/Spine no CVA tenderness General Back: other FROM Extremity normal to inspection General Extremety ED: Negative for edema, pulses abnormal or tenderness General Extremity: Negative for edema or pulses abnormal Neuro oriented x3, CN's II-XII intact bilaterally and no sensory deficits noted Sensorium / Orientation: awake and alert Motor Exam: strength 5/5 throughout Psych Psych Narrative: A little nervous but otherwise mental status normal. Skin no rashes or lesions noted and no wounds Heart Score History: Moderately Suspicious ECG: Nonspecific Repolarization Age: >45 - <65 years Risk Factors: No Risk Factors Troponin: </= Normal Limit Score: 3 MDM MDM MDM Narrative Medical decision making narrative: Given that the patient's EKG shows some minor nonspecific abnormalities that are unchanged compared with an old EKG and is essentially negative for anything acute, while we were worrying for the rest of the work-up to be performed we initially tried a GI cocktail given that esophageal pathology is in the differential diagnosis here and can oftentimes mimic unstable angina, this did not help her discomfort. By then, D-dimer returned negative, with her Wells criteria qualifying her with a score of 0, this essentially rules out pulmonary embolus or DVT in context of this discomfort, and her initial troponin was negative. Two-view chest x-ray on my interpretation shows some chronic abnormality in the left lower lobe that I thought was more likely to be atelectasis. Radiology interpretation was noted. I discussed with the radiologist, he states he understands that the left lower lobe chronic process was there before, however he states when looking at the lateral it appears worse now. I do not disagree. I went and discussed all of this with the patient, she states that she knows her body pretty well, she has had no symptoms of worsening bronchiectasis lately, no acute cough, no hemoptysis, no dyspnea or fevers, and she does not feel like she has pneumonia. She has had that before, at 1 point she felt like she had chronic pneumonia, she states she does not feel any of those symptoms right now and states this feels completely different, I tend to agree with her that this is less likely related to her discomfort. If it is indicating an acute pneumonia, she will likely get worse but I do not think antibiotics indicated at this time for the symptoms and she is in agreement with that as well. We waited for a 2-hour repeat troponin. It came back negative as well. In conjunction with her heart score of 3, she is safe for discharge home and close outpatient follow-up. We did give her a nitroglycerin while we were waiting for that second level, she states it did not seem to really help but once she relaxed and laid herself down to seem to get better, and she thinks it feels more like muscular discomfort. If she develops any new respiratory symptoms she is encouraged to return to the ER if she feels the need to, she is comfortable with that plan Lab Data Attestation: I reviewed the patient's lab results. Labs: Laboratory Results - last 24 hr 11/26/22 11/26/22 11/26/22 07:35 07:35 07:35 WBC 6.9 RBC 4.31 Hgb 12.7 Hct 40.5 MCV 94.0 MCH 29.5 MCHC 31.4 L RDW Std Deviation 44.9 H RDW Coeff of Daniel 13.0 Plt Count 331 MPV 9.4 Immature Gran % (Auto) 0.300 Neut % (Auto) 61.2 Lymph % (Auto) 31.4 Newton % (Auto) 4.5 Eos % (Auto) 1.9 Baso % (Auto) 0.7 Absolute Neuts (auto) 4.2 Absolute Lymphs (auto) 2.17 Nucleated RBC % 0 D-Dimer Quant (PE/DVT) 0.48 Sodium 138 Potassium 3.6 Chloride 105 Carbon Dioxide 30.0 Anion Gap 3 L BUN 13 Creatinine 0.80 Estim Creat Clear Calc 64.95 Est GFR (MDRD) Af Amer 95 Est GFR (MDRD) Non-Af 78 BUN/Creatinine Ratio 16.2 Glucose 112 H Calcium 9.1 Troponin I High Sens < 3 L 11/26/22 09:45 WBC RBC Hgb Hct MCV MCH MCHC RDW Std Deviation RDW Coeff of Daniel Plt Count MPV Immature Gran % (Auto) Neut % (Auto) Lymph % (Auto) Newton % (Auto) Eos % (Auto) Baso % (Auto) Absolute Neuts (auto) Absolute Lymphs (auto) Nucleated RBC % D-Dimer Quant (PE/DVT) Sodium Potassium Chloride Carbon Dioxide Anion Gap BUN Creatinine Estim Creat Clear Calc Est GFR (MDRD) Af Amer Est GFR (MDRD) Non-Af BUN/Creatinine Ratio Glucose Calcium Troponin I High Sens < 3 L Radiography Diagnostic Testing: Clinical Impression(s) from Imaging Studies Chest X-Ray 11/26/22 07:45 IMPRESSION: Focal infiltrate in the left lower lobe. Blunting of the left costophrenic angle. Electronically Signed: Golden Godfrey MD at 8:19 EDT , Rhythm Strip Rhythm Strip: Sinus Rhythm Rate: 85 Ectopy: None EKG Initial EKG: Attestation: I personally reviewed and interpreted this EKG as follows: Interpretation: Sinus Rhythm, No Acute Injury Pattern and Inverted T-Waves (V1-3, III) Prior EKG tracings: available for review (01/10/2020) Prior: Unchanged Differential Diagnosis Differential Diagnosis: As above including esophageal spasm Discharge Plan Triage Chief Complaint: Chest Pain ED Provider: Rolan Neumann Dx/Rx/DC Orders Clinical Impression: Left-sided chest pain Instructions: ED Chest Pain, Noncardiac Prescriptions: No Action levothyroxine 112 mcg capsule 112 mcg capsule 112 mcg PO DAILY escitalopram oxalate 20 mg tablet 20 mg PO DAILY cetirizine [Zyrtec] 10 mg tablet 10 mg PO DAILY Primary Care Provider: Pacheco Beckwith Referrals: Doctor,Your [Non-Staff] - 3-5 Days if not improving Disposition Disposition: Home, Self Care
--- NOTE | 2022-11-26 07:45 | RAD_ITS ---
STUDY: X-RAY CHEST REASON FOR EXAM: Female, 57 years old. Chest pain left TECHNIQUE: PA and lateral views of the chest. COMPARISON: Comparison is made with prior study of September 08, 2021. FINDINGS: EKG electrodes are seen. Infiltration in the posterior segment of the left lower lobe. Small left pleural effusion. Normal size heart. Normal mediastinum and nina. Normal visualized pulmonary arteries. There is atherosclerotic tortuosity of the aortic arch and descending thoracic aorta. There are diffuse degenerative changes of the visualized thoracic spine. Normal visualized ribs, clavicles, and shoulders. There is no demonstrated abnormality of the visualized soft tissue structures of the upper abdomen. RAD/Chest PA and Lateral IMPRESSION: Focal infiltrate in the left lower lobe. Blunting of the left costophrenic angle. Electronically Signed: Golden Godfrey MD at 8:19 EDT ,
[2022-11-26 07:47] LABS: Absolute Lymphocyte Count 2.17 X10^3/uL (0.83-4.51); Absolute Neutrophil Count 4.2 X10^3/uL (2.0-7.7); Basophil# 0.05 X10^3/uL; Basophil% 0.7 % (0-1); Eosinophil# 0.13 X10^3/uL; Eosinophils% 1.9 % (0-5); Hematocrit 40.5 % (37-47); Hemoglobin 12.7 g/dL (12.0-15.0); Lymphocyte # 2.17 X10^3/ul (0.83-4.51); Lymphocyte % 31.4 % (19-41); Mean Corp Hgb Conc 31.4 g/dL (32-36); Mean Corpuscular Hgb 29.5 pg (27.0-32.0); Mean Platelet Vol. 9.4 fl (6.2-12.0); Monocyte# 0.31 X10^3/uL; Monocyte% 4.5 % (0-10); NRBC Flagged by Analyzer 0 % (0-5); Neutrophil # 4.23 X10^3/uL (2.7-7.7); Neutrophil % 61.2 % (47-70); Platelet Count 331 K/mm3 (150-450); RBC Distribution Width SD 44.9 fl (35.1-43.9); Red Blood Count 4.31 M/mm3 (4.2-5.4); White Blood Count 6.9 K/mm3 (4.4-11.0)
[2022-11-26] MEDS: Mag Hydrox/Al Hydrox/Simeth 30 ML UDC PO (08:00)
[2022-11-26 08:04] LABS: D-Dimer Quantitative (DVT/PE) 0.48 FEU/ug/m (0.27-0.49)
[2022-11-26 08:12] LABS: Anion Gap 3 (5-15); BUN 13 mg/dL (7-18); BUN/Creat Ratio 16.2 RATIO (10-20); Calcium,Total 9.1 mg/dL (8.5-10.1); Chloride 105 mmol/L (98-107); EST Glomerular Filtration Rate 78 mL/min (>60); Est Glom Filt Rate - Afr Amer 95 mL/min (>60); Estimated Creatinine Clearance 64.95 ml/min; Glucose 112 mg/dL (74-106); Potassium 3.6 mmol/L (3.5-5.1); Sodium Level 138 mmol/L (136-145); Troponin-I HS (w/2H Reflex) < 3 pg/mL (3.0-54.0)
[2022-11-26 08:41] VITALS: BP 165/96; PULSE 66
[2022-11-26] MEDS: Nitroglycerin SL (ED/IMG/CATH) 0.4 MG TABLET SL (08:41)
[2022-11-26 08:44] VITALS: BP 107/70; PULSE 70; RESP 18; O2SAT 97
[2022-11-26 09:42] LABS: Reflex Troponin-HS? (from REC) Y
[2022-11-26 10:14] LABS: Troponin-I HS < 3 pg/mL (3.0-54.0)
[2022-11-26 10:33] VITALS: BP 135/75; PULSE 70; RESP 18; O2SAT 97
== END 2022-11-26 10:41 | disposition home or self-care (01) ==
PROVIDERS: Emergency Provider Emergency Medicine; PCP Family Medicine; Visit Provider Emergency Medicine
DX: R07.9 Chest pain, unspecified (principal)
CPT/HCPCS: 71046; 80048; 84484; 85025; 85379; 93005; 99285; A4216

== ENCOUNTER 2024-10-05 06:46 | Emergency (ER) | payer BC, SELFPAY ==
[2024-10-05 06:47] VITALS: BP 132/88; PULSE 67; RESP 18; TEMP 36.4; O2SAT 99; BMI 33.3
[2024-10-05 06:50] VITALS: O2SAT 99
--- NOTE | 2024-10-05 07:07 | CT_ITS ---
PROCEDURE: BRAIN/HEAD WITHOUT CONTRAST 10/05/2024 REASON FOR EXAM: HEAD INJURY TECHNIQUE: Head CT without intravenous contrast. Coronal and Sagittal reconstruction series were provided. One or more dose reduction techniques were used (e.g., Automated exposure control, adjustment of the mA and/or kV according to patient size, use of iterative reconstruction technique. RADIATION DOSE SUMMARY: CTDlvol: 44.99 mGy DLP: 745.49 mGycm COMPARISON: None available FINDINGS: No intracranial hemorrhage, mass effect or calvarial fracture. The ventricles are within limits and midline. The CSF spaces appear within limits. Hypoplastic left mastoid, anatomic variant. The paranasal sinuses, mastoids and orbits appear within limits. Small right frontal subgaleal lipoma incidentally noted. Posterior scalp soft tissue injury without radiopaque foreign body identified. CT/Brain/Head without Contrast IMPRESSION: No intracranial hemorrhage, mass effect or calvarial fracture. Reading Location: [id number]
--- NOTE | 2024-10-05 07:08 | EX.ED.GENINJ ---
HPI History of Present Illness Chief Complaint: Head Injury Detail of Chief Complaint: Head injury Informant: patient and family Narrative Narrative: Patient presents to the emergency department after sustaining a head injury this morning around 6:15 AM. Patient states that she was working out. She was hanging from a bar and pulling her knees up and attempt to workout her abdominal musculature when she lost her first aid trainer and fell backwards striking her head on some weights. She denies loss of consciousness. She denies neck pain. She has been ambulatory. She has had no nausea or vomiting. She is not on blood thinners. Patient unsure of her last tetanus shot. Tetanus Immunization: Unknown [facility] Medical History Asthma Bronchiectasis diarrhea lasting more than one week Knee pain Lung disease Thyroid disease Home Medications ?Medication ?Instructions ?Recorded ?Last Taken ?Type escitalopram oxalate 20 mg tablet 20 mg PO DAILY 06/02/18 Unknown History levothyroxine 112 mcg capsule 112 mcg PO DAILY 06/02/18 Unknown History cetirizine 10 mg tablet (Zyrtec) 10 mg PO DAILY 11/04/18 Unknown History amoxicillin 875 mg-potassium 1 tab PO BID #20 tabs 05/10/23 Unknown Rx clavulanate 125 mg tablet Allergy/AdvReac Type Severity Reaction Status Date / Time No Known Allergies Allergy Verified 10/05/24 06:47 Social History Smoking Status: Never smoker alcohol intake: never ROS ROS ED Review of Systems ROS Unobtainable: other Constitutional Constitutional ED: Reports lethargy; Denies chills, fever(s), sweats or weight loss Eyes Eyes: Denies blurry vision, change in vision or diplopia ENT ENT ED: Reports other Details: Scalp laceration, head injury ; Denies rhinorrhea or sore throat Cardiovascular Cardiovascular: Denies chest pain, orthopnea or racing heartbeat Respiratory/Chest Respiratory/Chest: Denies cough, dyspnea, dyspnea on exertion, orthopnea or sputum Gastrointestinal Gastrointestinal: Denies abdominal pain, diarrhea, nausea or vomiting Genitourinary Genitourinary ED: Denies dysuria, hematuria or urinary frequency Musculoskeletal Musculoskeletal: Denies arthralgias, back pain, myalgias or neck pain Integumentary Denies abscess, Abrasions or rash Neurologic Neurologic: Denies headache(s) or weakness Psychiatric Psychiatric: Denies anxiety, depression or suicidal thoughts Endocrine Endocrinology: Denies polydipsia, polyphagia or polyuria Hematologic/Lymphatic Hematologic/Lymphatic: Denies easy bleeding, easy bruising or lymphadenopathy Allergic/Immunologic Allergic/Immunologic ED: Denies mouth swelling, tongue swelling or urticaria EXAM Physical Exam Const Vital Signs: 10/05/24 06:47 10/05/24 06:50 Temperature 97.6 F L Temperature Source Oral Pulse Rate 67 Respiratory Rate 18 Respiratory Effort Normal Respiratory Depth Normal Respiratory Pattern Normal Blood Pressure 132/88 H Blood Pressure Mean 102 Pulse Ox 99 99 Oxygen Delivery Method Room Air Room Air Positive well nourished and well developed General Appearance ED: well developed and NAD HEENT Reports TM's clear and moist mucous membranes HEENT Narrative: 3.5 cm laceration posterior occiput. No bony step-offs or depressions noted. No significant active bleeding normocephalic and atraumatic; Negative for trauma or tenderness Tympanic Membrane ED: Yes TM's clear Eyes PERRL and EOMs intact bilaterally General Eye ED: Negative for pale conjunctiva or scleral icterus Neck no lymphadenopathy, supple and no JVD General: Negative for tenderness Chest Wall inspection of chest normal and palpation of chest normal Chest: Negative for tenderness Resp normal respiratory effort and clear to auscultation bilaterally Effort and Inspection: Negative for respiratory distress or pain with movement Auscultation: Negative for rhonchi, wheezes or diminished lung sounds Cardio regular rate, regular rhythm, S1 normal heart sound, S2 normal heart sound and no murmurs Peripheral Pulses: pulses 2+ throughout GI normal to inspection, nondistended, normoactive bowel sounds, soft to palpation, non-tender, non-distended and no masses Back/Spine no CVA tenderness and no thoracic nor lumbar tenderness Extremity normal to inspection General Extremety ED: Negative for edema General Extremity: Negative for edema Neuro oriented x3, CN's II-XII intact bilaterally, no sensory deficits noted and gait normal Sensorium / Orientation: awake, alert, oriented to person, oriented to place and oriented to time Motor Exam: strength 5/5 throughout and strength abnormal Psych mental status grossly normal Skin no rashes or lesions noted and no wounds PROC Procedures Lacerations Scalp laceration: Length: 1.38 in Depth: Sub Q Shape: Flap Prep: Sterile Conditions and Shure-Clens Laceration repair: Irrigated, Lidocaine with epi and Skin sutures Irrigated (ml): 50 Number of Sutures/Kristina: 5 Suture Information: Ethilon, Simple and 4-0 MDM MDM MDM Narrative Medical decision making narrative: Patient presents with head injury. No loss of consciousness. Clinically looks well. GCS 15. No neck pain. Given her age and mechanism obtained a CT scan of the brain without contrast to rule out intracranial hemorrhage or skull fracture. On my interpretation these are negative. Please see procedure note for suture repair. Advised to follow-up with primary care physician in 10 days for suture removal. She did receive a tetanus booster. Discharge Plan Triage Chief Complaint: Head Injury ED Provider: Mechelle Short Dx/Rx/DC Orders Clinical Impression: Closed head injury, Laceration of scalp Instructions: ED Head Injury (Adult), ED Laceration Scalp Stitches or Kristina Prescriptions: No Action levothyroxine 112 mcg capsule 112 mcg PO DAILY escitalopram oxalate 20 mg tablet 20 mg PO DAILY cetirizine [Zyrtec] 10 mg tablet 10 mg PO DAILY amoxicillin-pot clavulanate 875-125 mg tablet 1 tab PO BID Qty: 20 0RF Primary Care Provider: Pacheco Beckwith Referrals: Pacheco Beckwith MD [Primary Care Provider] - 10 Day for suture removal Print Language: Czech Disposition Disposition: Home, Self Care
[2024-10-05] MEDS: Lidocaine 1% /Epi 1:100 (20ml) 20 ML Vial 10 ML INFILT (07:28)
[2024-10-05] MEDS: Diphth,Pertuss(Acell),Tet Vac 0.5 ML Vial IM (07:28)
[2024-10-05 08:04] VITALS: BP 118/64; PULSE 78; RESP 16; TEMP 37.2; O2SAT 99
== END 2024-10-05 08:05 | disposition home or self-care (01) ==
LOC: ED 07:50
PROVIDERS: Emergency Provider Emergency Medicine; PCP Family Medicine; Visit Provider Emergency Medicine
DX: S01.01XA Laceration without foreign body of scalp, initial encounter (principal); W17.89XA Other fall from one level to another, initial encounter; Y93.B9 Activity, other involving muscle strengthening exercises; Z23 Encounter for immunization
CPT/HCPCS: 12002; 70450; 90471; 90715; 99283